=== PATIENT | male | born 1970 | race Caucasian/White ===

== ENCOUNTER 2018-04-30 18:45 | Emergency (ER) | payer MEDICAID, SELFPAY ==
[2018-04-30] VITALS (7 sets, daily range): BP systolic 125–151; BP diastolic 54–72; PULSE 90–105; RESP 18–20; TEMP 36.4; O2SAT 95–96; BMI 22.2
[2018-04-30] MEDS: Ipratropium/Albuterol Sulfate 3 ML AMPUL.NEB INHALATION (20:19)
[2018-04-30] MEDS: Albuterol 2.5 MG/3 ML VIAL.NEB. INHALATION ×4 (20:19→22:25)
--- NOTE | 2018-04-30 20:50 | RAD_ITS ---
STUDY: X-RAY CHEST REASON FOR EXAM: Male, 48 years old. Wheezing, asthma TECHNIQUE: PA and lateral views of the chest. COMPARISON: None. FINDINGS: The lungs are clear and expanded. There is no demonstrated pleural abnormality. Normal size heart. Normal mediastinum and alecia. Normal visualized pulmonary arteries. Normal visualized aortic arch and descending thoracic aorta. Normal visualized thoracic spine. Normal visualized ribs, clavicles, and shoulders. There is no demonstrated abnormality of the visualized soft tissue structures of the upper abdomen. RAD/Chest PA and Lateral IMPRESSION: Normal x-ray examination of the chest. Electronically Signed: Da Rodgers MD at 21:54 EST , Service support ,
--- NOTE | 2018-04-30 21:05 | ED.DCSUM_ITS ---
- ER Visit Summary Date of Service: 04/30/18 Chief Complaint: Cough History of Present Illness: The patient is a 48 M presenting with cough, shortness of breath. He has had a sore throat, productive cough, shortness of breath. This started yesterday. His daughter has been ill with similar complaints. He has a history of asthma. He denies fever or other complaints. Physical Examination: Vitals are stable. Patient is afebrile. Alert no acute distress. HEENT exam is unremarkable. Pharynx mild erythema with no exudate, uvula midline Neck is supple. No meningismus Lungs expiratory wheezing bilaterally. Heart is regular rate and rhythm. Abdomen is soft nontender nondistended. Extremities are unremarkable. Skin is warm and dry. No focal neurologic deficit. Remainder of exam is unremarkable. Emergency Department Course and Treatment: Patient was given albuterol, Atrovent aerosols. He was given Decadron p.o. Chest x-ray shows no acute process. On reevaluation, patient continues to wheeze. He was given additional albuterol aerosol with improvement. CBC, chemistries unremarkable. His pulse ox with ambulation is 94% on room air. On reevaluation, patient is now feeling improved. His lungs are clear to auscultation bilaterally. He is requesting discharge home. He is given a prescription for prednisone and Tessalon Perles. Advised to follow-up with his primary care physician. Advised return to ED if worsening complaints. Disposition: Discharge home Impression: Asthma exacerbation, URI This note was generated with [employer] dictation software. It may contain incorrect words, spelling, and punctuation that were not noted in review of the chart prior to signing ED Disposition - Plan for ED Patient: Prescriptions: Benzonatate [Tessalon Perle] 200 mg PO TID PRN PRN #20 capsule PRN Reason: Cough Prednisone [Deltasone] 40 mg PO DAILY #10 tablet Referrals: Angeline Rubio MD [Primary Care Provider] -
[2018-04-30 22:50] LABS: Absolute Lymphocyte Count 0.54 X10^3/ul (0.83-4.51); Basophil# 0.01 X10^3/uL; Basophil% 0.2 % (0-1); Eosinophil# 0.27 X10^3/uL; Eosinophils% 5.3 % (0-5); Hematocrit 40.8 % (40-54); Hemoglobin 13.5 g/dl (13.0-16.5); Lymphocyte # 0.54 X10^3/ul (4.0); Lymphocyte % 10.5 % (19-41); Mean Corp Hgb Conc 33.1 g/gl (32-36); Mean Corpuscular Hgb 29.2 pg (27.0-32.0); Mean Corpuscular Volume 88.3 fL (80-94); Monocyte# 0.25 X10^3/uL; Monocyte% 4.9 % (0-10); Neutrophil # 4.04 X10^3/uL (2.7-7.7); Neutrophil % 78.9 % (47-70); Platelet Count 169 K/mm3 (150-450); RBC Distribution Width CV 13.3 % (11.6-14.6); RBC Distribution Width SD 42.9 fl (35.1-43.9); Red Blood Count 4.62 M/mm3 (4.6-6.2); White Blood Count 5.1 K/mm3 (4.4-11.0)
[2018-04-30 22:51] LABS: Differential Indicated SCAN CRITERIA MET; POSITIVE COUNT NO; POSITIVE DIFFERENTIAL YES; POSITIVE MORPHOLOGY NO
[2018-04-30 22:57] LABS: Anion Gap 8 (5-15); BUN 13 mg/dL (7-18); BUN/Creat Ratio 13.5 RATIO (10-20); Calcium,Total 8.2 mg/dL (8.5-10.1); Chloride 103 mmol/L (98-107); Creatinine, Serum 0.96 mg/dL (0.70-1.30); EST Glomerular Filtration Rate 89 mL/min (>60); Est Glom Filt Rate - Afr Amer 108 mL/min (>60); Estimated Creatinine Clearance 95.61 ml/min; Glucose 128 mg/dL (74-106); Potassium 3.5 mmol/L (3.5-5.1); Sodium Level 138 mmol/L (136-145)
[2018-04-30 23:04] LABS: Differential Comment SCANNED
--- NOTE | 2018-04-30 23:23 | ED.DEP ---
ED Disposition - Plan for ED Patient: Prescriptions: Benzonatate [Tessalon Perle] 200 mg PO TID PRN PRN #20 capsule PRN Reason: Cough Prednisone [Deltasone] 40 mg PO DAILY #10 tablet Referrals: Angeline Rubio MD [Primary Care Provider] -
--- NOTE | 2018-04-30 23:41 | ED.DEP ---
ED Disposition - Plan for ED Patient: Instructions: ED Bronchitis Asthmatic Prescriptions: Benzonatate [Tessalon Perle] 200 mg PO TID PRN PRN #20 capsule PRN Reason: Cough Prednisone [Deltasone] 40 mg PO DAILY #10 tablet Referrals: Angeline Rubio MD [Primary Care Provider] - Yury Perez DO [STAFF PHYSICIAN] -
== END 2018-04-30 23:48 | disposition home or self-care (01) ==
PROVIDERS: Emergency Provider Emergency Medicine; Family Provider Internal Medicine; PCP Internal Medicine
DX: J45.901 Unspecified asthma with (acute) exacerbation (principal); J06.9 Acute upper respiratory infection, unspecified
CPT/HCPCS: 71046; 80048; 85025; 94640; 99283; A4216

== ENCOUNTER 2018-05-01 10:23 | Emergency (ER) | payer MEDICAID, SELFPAY ==
[2018-04-30 18:46] VITALS: BMI 22.2
[2018-05-01 10:23] VITALS: BP 130/106; PULSE 84; RESP 16; TEMP 36.6; O2SAT 94; BMI 22.2
--- NOTE | 2018-05-01 10:35 | EKG12_ITS ---
Test Reason : SOB Blood Pressure : / mmHG Vent. Rate : 087 BPM Atrial Rate : 087 BPM P-R Int : 140 ms QRS Dur : 086 ms QT Int : 330 ms P-R-T Axes : 070 074 061 degrees QTc Int : 397 ms Normal sinus rhythm Normal ECG Confirmed by JEREMIE RAYMUNDO, MONA ([id number]), editor continuity and script IVETT NICOLE ([id number]) on 05/04/2018 1:36:22 PM Referred By: JULIET Confirmed By:MONA CHAO MD
--- NOTE | 2018-05-01 10:38 | ED.DCSUM_ITS ---
- ER Visit Summary Date of Service: 05/01/18 Chief Complaint: Shortness of breath History of Present Illness: The patient is a 48 M with shortness of breath, patient was seen here yesterday was given nebulizers and Decadron he significant improved and was discharged home. He woke up in quite a bit of distress. He has no fever chills he has no chest pain. He has no PE risk factors, no leg pain swelling or recent travel. Physical Examination: Not appear in acute distress. He is speaking in full sentences Moist mucous membranes, no obvious facial deformity No C-spine tenderness supple neck. Regular rate and rhythm without any obvious murmurs Lungs are coarse bilaterally with end expiratory wheezing, there are diminished breath sounds also. Abdomen soft and nontender no guarding or rebound Moves all extremities without any difficulty or pain. Skin does not show any obvious rashes or lesions, no trauma. Alert oriented ?3 with no gross focal deficit Emergency Department Course and Treatment: Patient was given nebulizers, he is significantly improved he feels much better I reevaluated him he has very slight and expiratory wheezing. He will be discharged he received IV Solu-Medrol in the ED he has a prescription for prednisone which she will start today. I will give him nebulizer machine as well. If he worsens he needs to return he will be admitted. He had an unremarkable x-ray yesterday, he has no fever chills or a nything to warrant another x-ray today. Discharge stable condition Impression: Acute asthma exacerbation This note was generated with [employer] dictation software. It may contain incorrect words, spelling, and punctuation that were not noted in review of the chart prior to signing ED Disposition - Plan for ED Patient: Disposition: Home or Assisted Living Instructions: ED Reactive Airway Disease Prescriptions: Albuterol Aerosols [Ventolin Aerosols] 2.5 mg INHALATION Q2H PRN PRN #30 vial.neb. PRN Reason: Sob &/Or Wheezing Referrals: Angeline Rubio MD [Primary Care Provider] - 3-5 Days
[2018-05-01 10:54] LABS: Absolute Lymphocyte Count 0.48 X10^3/ul (0.83-4.51); Absolute Neutrophil Count 4.1 X10^3/uL (2.0-7.7); Basophil# 0.01 X10^3/uL; Basophil% 0.2 % (0-1); Differential Indicated SCAN CRITERIA MET; Eosinophil# 0.01 X10^3/uL; Eosinophils% 0.2 % (0-5); Hematocrit 42.1 % (40-54); Hemoglobin 13.9 g/dl (13.0-16.5); Lymphocyte # 0.48 X10^3/ul (4.0); Lymphocyte % 9.7 % (19-41); Mean Corpuscular Hgb 29.1 pg (27.0-32.0); Mean Corpuscular Volume 88.1 fL (80-94); Mean Platelet Vol. 10.4 fl (6.2-12.0); Monocyte# 0.34 X10^3/uL; Monocyte% 6.8 % (0-10); Neutrophil # 4.12 X10^3/uL (2.7-7.7); Neutrophil % 82.9 % (47-70); POSITIVE COUNT NO; POSITIVE DIFFERENTIAL YES; POSITIVE MORPHOLOGY NO; Platelet Count 212 K/mm3 (150-450); RBC Distribution Width CV 13.5 % (11.6-14.6); RBC Distribution Width SD 43.5 fl (35.1-43.9); Red Blood Count 4.78 M/mm3 (4.6-6.2)
[2018-05-01 10:56] VITALS: PULSE 125; RESP 23
[2018-05-01] MEDS: Albuterol 2.5 MG/3 ML VIAL.NEB. INHALATION ×3 (10:56)
[2018-05-01] MEDS: Ipratropium/Albuterol Sulfate 3 ML AMPUL.NEB INHALATION (10:56)
[2018-05-01] MEDS: MethylPREDNISolone 125 MG/2 ML Vial IV (10:56)
[2018-05-01 11:30] VITALS: BP 167/89; PULSE 106; RESP 14; O2SAT 95
[2018-05-01 11:45] LABS: Anion Gap 11 (5-15); BUN 9 mg/dL (7-18); BUN/Creat Ratio 10.7 RATIO (10-20); Calcium,Total 8.9 mg/dL (8.5-10.1); Chloride 103 mmol/L (98-107); Creatinine, Serum 0.84 mg/dL (0.70-1.30); EST Glomerular Filtration Rate 104 mL/min (>60); Est Glom Filt Rate - Afr Amer 126 mL/min (>60); Estimated Creatinine Clearance 109.27 ml/min; Glucose 109 mg/dL (74-106); Potassium 3.6 mmol/L (3.5-5.1); Sodium Level 141 mmol/L (136-145)
[2018-05-01 12:08] VITALS: BP 146/84; PULSE 116; RESP 14; O2SAT 96
== END 2018-05-01 12:09 | disposition home or self-care (01) ==
PROVIDERS: Emergency Provider Emergency Medicine; Family Provider Internal Medicine; PCP Internal Medicine
DX: J45.901 Unspecified asthma with (acute) exacerbation (principal)
CPT/HCPCS: 80048; 85025; 93005; 94640; 96374; 99284

== ENCOUNTER → 2018-08-09 | Outpatient (CLI) | payer MEDICAID, SELFPAY ==
[2018-08-09 07:52] VITALS: BMI 22.2
[2018-08-09 08:53] LABS: Absolute Lymphocyte Count 1.61 X10^3/ul (0.83-4.51); Absolute Neutrophil Count 2.7 X10^3/uL (2.0-7.7); Basophil# 0.04 X10^3/uL; Basophil% 0.7 % (0-1); Eosinophil# 0.57 X10^3/uL; Eosinophils% 10.6 % (0-5); Hematocrit 46.4 % (40-54); Hemoglobin 15.8 g/dl (13.0-16.5); Lymphocyte # 1.61 X10^3/ul (4.0); Lymphocyte % 29.9 % (19-41); Mean Corp Hgb Conc 34.1 g/gl (32-36); Mean Corpuscular Hgb 29.3 pg (27.0-32.0); Mean Corpuscular Volume 86.1 fL (80-94); Monocyte# 0.44 X10^3/uL; Monocyte% 8.2 % (0-10); Neutrophil # 2.72 X10^3/uL (2.7-7.7); Neutrophil % 50.6 % (47-70); Platelet Count 245 K/mm3 (150-450); RBC Distribution Width CV 13.1 % (11.6-14.6); RBC Distribution Width SD 41.5 fl (35.1-43.9); Red Blood Count 5.39 M/mm3 (4.6-6.2); White Blood Count 5.4 K/mm3 (4.4-11.0)
[2018-08-09 08:54] LABS: POSITIVE COUNT NO; POSITIVE DIFFERENTIAL NO; POSITIVE MORPHOLOGY NO
[2018-08-18 03:06] LABS: Alternaria tenuis <0.10 kU/L (Class 0); Ash, White 1.26 kU/L (Class II); Aspergillus fumigatus 0.22 kU/L (Class 0/I); Aspirgillus flavus Negative (Neg:<1:1); Aspirgillus fumigatus Negative (Neg:<1:1); Aspirgillus niger Negative (Neg:<1:1); Bermuda Grass 1.32 kU/L (Class II); Birch 0.78 kU/L (Class II); Black Walnut 0.63 kU/L (Class II); Cedar, Mountain 0.59 kU/L (Class II); Cladosporium herbarum 0.24 kU/L (Class 0/I); Cockroach, American 0.32 kU/L (Class I); Cottonwood 0.99 kU/L (Class II); Elm, American White 1.05 kU/L (Class II); Immunoglobulin E 1251 IU/mL (6-495); Maple/Box Elder 0.44 kU/L (Class I); Mulberry, White 0.16 kU/L (Class 0/I); Oak, White 1.09 kU/L (Class II); Penicillium Notatum 0.12 kU/L (Class 0/I); Pigweed, Rough 0.62 kU/L (Class II); Ragweed, Short/Common 1.37 kU/L (Class II); Russian Thistle 0.74 kU/L (Class II); Sheep Sorrel 0.71 kU/L (Class II); Timothy Grass 5.27 kU/L (Class IV)
[2018-08-18 16:28] LABS: Immunoglobulin E 1316 IU/mL (6-495); Mouse Urine 0.31 kU/L (Class 0/I)
== END | disposition home or self-care (01) ==
PROVIDERS: Family Provider Internal Medicine; PCP Internal Medicine; Referring Provider Internal Medicine Critical Care Medicine; Visit Provider Internal Medicine Critical Care Medicine
DX: J45.909 Unspecified asthma, uncomplicated (principal)
CPT/HCPCS: 36415; 82785; 85025; 86003; 86606

== ENCOUNTER → 2018-08-18 | Outpatient (CLI) | payer MEDICAID, SELFPAY ==
[2018-08-09 07:52] VITALS: BMI 22.2
--- NOTE | 2018-08-19 11:32 | PFT ---
INTRODUCTION: The patient is a 48-year-old male that presents for pulmonary function studies secondary to a diagnosis of asthma. Respiratory therapy reports good patient effort. Bronchodilators were used during testing. INTERPRETATION: Forced expiration spirometry demonstrates the presence of a moderately severe large airways obstructive ventilatory defect. There was a significant response to aerosolized bronchodilators noted, based upon change in FEV1. Spirograms are of good quality and do not plateau indicating slow emptying of the lungs. Body plethysmography was performed and reveals an elevated RV to 137% of predicted, indicative of underlying air trapping. Diffusing capacity by single breath CO is within normal limits. 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
== END | disposition home or self-care (01) ==
LOC: PSN 13:22
PROVIDERS: Family Provider Internal Medicine; PCP Internal Medicine; Referring Provider Internal Medicine Critical Care Medicine; Visit Provider Internal Medicine Critical Care Medicine
DX: J45.909 Unspecified asthma, uncomplicated (principal)
CPT/HCPCS: 94060; 94726; 94729

== ENCOUNTER → 2019-05-04 10:14 | Outpatient (CLI) | payer MEDICAID, SELFPAY ==
[2019-05-04 07:41] VITALS: BMI 22.9
[2019-05-04 10:48] LABS: Absolute Lymphocyte Count 1.86 X10^3/uL (0.83-4.51); Absolute Neutrophil Count 2.8 X10^3/uL (2.0-7.7); Basophil# 0.03 X10^3/uL; Basophil% 0.5 % (0-1); Eosinophil# 0.55 X10^3/uL; Eosinophils% 9.8 % (0-5); Hematocrit 43.1 % (40-54); Hemoglobin 14.6 g/dL (13.0-16.5); Lymphocyte # 1.86 X10^3/ul (4.0); Lymphocyte % 33.2 % (19-41); Mean Corp Hgb Conc 33.9 g/dL (32-36); Mean Corpuscular Hgb 29.7 pg (27.0-32.0); Mean Corpuscular Volume 87.6 fL (80-94); Mean Platelet Vol. 9.4 fl (6.2-12.0); Monocyte# 0.38 X10^3/uL; Monocyte% 6.8 % (0-10); NRBC Flagged by Analyzer 0 % (0-5); Neutrophil # 2.77 X10^3/uL (2.7-7.7); Neutrophil % 49.3 % (47-70); Platelet Count 244 K/mm3 (150-450); RBC Distribution Width CV 12.5 % (11.6-14.6); Red Blood Count 4.92 M/mm3 (4.6-6.2); White Blood Count 5.6 K/mm3 (4.4-11.0)
[2019-05-08 14:07] LABS: Cytoplasmic Ab (C-ANCA) 1:40 titer (Neg:<1:20)
[2019-05-08 17:53] LABS: Immunoglobulin E 1724 IU/mL (6-495); Perinuclear Ab (P-ANCA) <1:20 titer (Neg:<1:20)
== END ==
PROVIDERS: PCP Internal Medicine; Referring Provider Internal Medicine Critical Care Medicine; Visit Provider Internal Medicine Critical Care Medicine
DX: J45.50 Severe persistent asthma, uncomplicated (principal)
CPT/HCPCS: 36415; 82785; 85025; 86256